=== PATIENT | male | born 1960 | race African-American/Black ===

== ENCOUNTER 2020-05-07 23:02 | Observation (INO) | payer BC ==
[2020-05-08] MEDS ORDERED: Nitroglycerin 0.4 MG TAB (25 Tab Bottle) SL PRN (01:15)
[2020-05-08] MEDS ORDERED: Cyanocobalamin (Vitamin B-12) 1,000 MCG TAB PO SCH (01:30)
[2020-05-08] MEDS ORDERED: Thiamine 100 MG TAB PO SCH (01:30)
[2020-05-08] MEDS ORDERED: Ondansetron ODT 4 MG TAB PO PRN (01:48)
[2020-05-08] MEDS ORDERED: Ondansetron PF 4 MG/2 ML Vial IVP PRN (01:48)
[2020-05-08 02:21] LABS: Troponin I 0.043 ng/mL (< 0.028)
[2020-05-08 02:24] VITALS: BMI 29.2
[2020-05-08] MEDS: Nitroglycerin 2% Ointment 1 INCH/1 GM Packet TOP SCH ×3 (04:22→18:44)
[2020-05-08 05:37] LABS: Bacteria/HPF None Seen HPF (None Seen); Bilirubin Negative (Negative); Blood, Urine Negative (Negative); Clarity Clear (Clear); Glucose, Urine (Dipstick) Normal (Negative); Ketone, Urine Negative (Negative); Leukocyte Negative Leu/uL (Negative); Medtox Reader # READER 4; Nitrite Negative (Negative); Protein, Urine (Dipstick) Negative (Neg-Trace); RBC/HPF None Seen HPF (0-3); Specific Gravity, Urine 1.022 (1.002-1.036); Squamous Epithelial None Seen HPF (0-3); Urobilinogen Normal mg/dL (Less than 2); WBC/HPF 0-3 HPF (0-3); pH, Urine 5.5 (5.0-9.0)
[2020-05-08 05:38] LABS: Amphetamine Not Detected (NotDetected); Barbiturates Screen Not Detected (NotDetected); Benzodiazepine Screen Not Detected (NotDetected); Cocaine Metabolite Screen Not Detected (NotDetected); Medtox Control Line Valid? VALID (VALID); Methadone Not Detected (NotDetected); Methamphetamine Not Detected (NotDetected); Opiate Screen Not Detected (NotDetected); Oxycodone Screen Not Detected (NotDetected); Phencyclidine (PCP) Not Detected (NotDetected); THC/Cannabinoid Screen Not Detected (NotDetected); Tricyclic Screen Not Detected (NotDetected)
[2020-05-08 05:45] LABS: #Basophils 0.1 thou/uL (0.0-0.2); #Eosinphils 0.1 thou/uL (0.0-0.7); #Lymphocytes 3.6 thou/uL (1.20-3.40); #Monocytes 0.8 thou/uL (0.11-0.59); #Neutrophils 3.2 thou/uL (1.40-6.50); %Basophils 1.1 % (0.0-1.0); %Eosinophils 1.9 % (0.0-10.0); %Lymphocytes 46.2 % (21.0-51.0); %Monocytes 10.3 % (0.0-10.0); %Neutrophils 40.6 % (42.0-75.0); Hemoglobin 12.9 g/dL (14.0-18.0); Mean Corpuscular HGB CONC 34.1 g/dL (32.0-36.0); Mean Corpuscular Hemoglobin 32.7 pg (27.0-31.0); Mean Corpuscular Volume 95.9 fL (78.0-98.0); Mean Platelet Volume 10.1 fL (7.4-10.4); Platelet Count 157 thou/uL (130-400); RBC Distribution Width 11.5 % (11.5-14.5); Red Blood Cell (RBC) Count 3.94 mill/uL (4.70-6.10); White Blood Cell (WBC) Count 7.8 thou/uL (4.8-10.8)
[2020-05-08] MEDS ORDERED: Nitroglycerin 2% Ointment 1 INCH/1 GM Packet TOP SCH (06:00)
[2020-05-08 06:02] LABS: Anion Gap 13 mmol/L (10-20); BUN (Urea Nitrogen) 17 mg/dL (8.4-25.7); Calc. Creatinine Clearance 84 mL/min (70-130); Calcium 8.2 mg/dL (7.8-10.44); Carbon Dioxide 20 mmol/L (23-31); Chloride 109 mmol/L (98-107); Glucose 105 mg/dL (80-115); Potassium 3.8 mmol/L (3.5-5.1); Sodium 138 mmol/L (136-145); Troponin I 0.019 ng/mL (< 0.028)
[2020-05-08] MEDS: Thiamine 100 MG TAB PO SCH (08:29)
[2020-05-08] MEDS: Aspirin Chewable 81 MG TAB PO SCH (08:29)
[2020-05-08] MEDS: Acetaminophen 325 MG TAB PO PRN ×2 (08:29→17:33)
[2020-05-08] MEDS: Famotidine 20 MG TAB PO SCH ×2 (08:29→21:38)
[2020-05-08] MEDS: Cyanocobalamin (Vitamin B-12) 1,000 MCG TAB PO SCH (08:29)
[2020-05-08] MEDS ORDERED: Amlodipine 10 MG TAB PO SCH ×2 (09:00→14:00)
[2020-05-08 09:03] LABS: SARS-CoV-2 PCR by NAA Not Detected (NotDetected)
[2020-05-08] MEDS: Nicotine 14 MG PATCH TD SCH (11:31)
[2020-05-08] MEDS ORDERED: Labetalol HCl 100 MG/20 ML VIAL SLOW IVP PRN (13:49)
[2020-05-08] MEDS ORDERED: hydrALAZINE 20 MG/ML VIAL SLOW IVP PRN (13:49)
[2020-05-08] MEDS ORDERED: Lisinopril 20 MG TAB PO SCH (14:30)
[2020-05-08] MEDS: Atorvastatin Calcium 40 MG TAB PO SCH (21:38)
[2020-05-09 05:19] LABS: #Basophils 0.1 thou/uL (0.0-0.2); #Eosinphils 0.1 thou/uL (0.0-0.7); #Lymphocytes 2.7 thou/uL (1.20-3.40); #Monocytes 0.7 thou/uL (0.11-0.59); #Neutrophils 2.4 thou/uL (1.40-6.50); %Basophils 1.5 % (0.0-1.0); %Eosinophils 2.2 % (0.0-10.0); %Lymphocytes 44.6 % (21.0-51.0); %Neutrophils 39.8 % (42.0-75.0); Hemoglobin 13.3 g/dL (14.0-18.0); Mean Corpuscular HGB CONC 32.5 g/dL (32.0-36.0); Mean Corpuscular Hemoglobin 31.4 pg (27.0-31.0); Mean Corpuscular Volume 96.4 fL (78.0-98.0); Mean Platelet Volume 9.5 fL (7.4-10.4); Platelet Count 159 thou/uL (130-400); RBC Distribution Width 11.5 % (11.5-14.5); Red Blood Cell (RBC) Count 4.25 mill/uL (4.70-6.10); White Blood Cell (WBC) Count 6.1 thou/uL (4.8-10.8)
[2020-05-09] MEDS: NIFEdipine XL 60 MG TAB PO SCH (05:22)
[2020-05-09 05:34] LABS: Anion Gap 9 mmol/L (10-20); BUN (Urea Nitrogen) 10 mg/dL (8.4-25.7); Calc. Creatinine Clearance 76 mL/min (70-130); Calcium 8.4 mg/dL (7.8-10.44); Carbon Dioxide 25 mmol/L (23-31); Chloride 108 mmol/L (98-107); Glucose 91 mg/dL (80-115); Potassium 4.2 mmol/L (3.5-5.1); Sodium 138 mmol/L (136-145)
[2020-05-09] MEDS: Nicotine 14 MG PATCH TD SCH (07:33)
[2020-05-09] MEDS: Thiamine 100 MG TAB PO SCH (08:28)
[2020-05-09] MEDS: Amlodipine 10 MG TAB PO SCH (08:28)
[2020-05-09] MEDS: Famotidine 20 MG TAB PO SCH ×2 (08:28→21:36)
[2020-05-09] MEDS: Cyanocobalamin (Vitamin B-12) 1,000 MCG TAB PO SCH (08:29)
[2020-05-09] MEDS: Aspirin Chewable 81 MG TAB PO SCH (08:29)
[2020-05-09] MEDS: Lisinopril 20 MG TAB PO SCH (08:29)
[2020-05-09] MEDS: Acetaminophen 325 MG TAB PO PRN (14:27)
[2020-05-09] MEDS: Atorvastatin Calcium 40 MG TAB PO SCH (21:36)
[2020-05-10] MEDS: NIFEdipine XL 60 MG TAB PO SCH (07:42)
[2020-05-10] MEDS: Famotidine 20 MG TAB PO SCH (08:33)
[2020-05-10] MEDS: Thiamine 100 MG TAB PO SCH (08:34)
[2020-05-10] MEDS: Aspirin Chewable 81 MG TAB PO SCH (08:34)
[2020-05-10] MEDS: Cyanocobalamin (Vitamin B-12) 1,000 MCG TAB PO SCH (08:34)
[2020-05-10] MEDS: Nicotine 14 MG PATCH TD SCH (10:56)
[2020-05-10] MEDS: Amlodipine 10 MG TAB PO SCH (10:56)
[2020-05-10] MEDS: Lisinopril 20 MG TAB PO SCH (10:56)
[2020-05-10] MEDS ORDERED: Amlodipine 10 MG TAB PO SCH (12:15)
[2020-05-10] MEDS ORDERED: NIFEdipine XL 60 MG TAB PO SCH (12:30)
[2020-05-10] MEDS ORDERED: Regadenoson 0.4 MG/5 ML SYRINGE ONE (12:50)
[2020-05-10 13:27] VITALS: BP 174/82
[2020-05-10 14:18] VITALS: TEMP 98.9
== END 2020-05-10 14:15 | disposition home or self-care (01) ==
LOC: 2SW 05-08 00:51
PROVIDERS: ADMIT Student in an Organized Health Care Education/Training Program; ATTEND Internal Medicine
DX: I20.0 Unstable angina (principal); I95.9 Hypotension, unspecified; R00.1 Bradycardia, unspecified; I11.9 Hypertensive heart disease without heart failure; F17.210 Nicotine dependence, cigarettes, uncomplicated; E78.00 Pure hypercholesterolemia, unspecified; Z79.82 Long term (current) use of aspirin; Z79.899 Other long term (current) drug therapy; Z20.822 Contact with and (suspected) exposure to COVID-19
CPT/HCPCS: 36415; 78452; 80048; 80061; 80306; 81001; 83735; 83880; 84443; 84484; 85025; 87635; 93017; 93306; 94760; A9500; G0378; J2785; U0003; U0005